=== PATIENT | male | born 1965 | race Hispanic/Latino ===

== ENCOUNTER → 2016-04-23 | Outpatient (CLI) | payer BC ==
--- NOTE | 2016-04-23 14:56 | DI ---
RIGHT KNEE, 04/23/2016 10:23 AM: Clinical History: Acute right knee pain. Previous Exam: None at this facility. 3 views are submitted. There is no acute soft tissue, osseous, or joint abnormality. The patient is s tatus post ACL repair. Reading: Status post ACL repair. The knee exam is otherwise normal.
== END ==
LOC: MOB RAD 10:57
PROVIDERS: ATTEND Physician Assistant
DX: M25.561 Pain in right knee (principal); Z98.890 Other specified postprocedural states
CPT/HCPCS: 73562